=== PATIENT | female | born 1985 ===

== ENCOUNTER 2016-12-28 05:36 | Inpatient (IN) | payer SELFPAY ==
[2016-12-28] MEDS ORDERED: ceFAZolin 2 GM in Sodium Chloride 0.9% 100 ML IVPB ONE (05:43)
[2016-12-28 05:45] VITALS: BMI 37.5
[2016-12-28] MEDS: Lactated Ringer's 1,000 ML IV SCH ×3 (06:15→21:54)
[2016-12-28] MEDS ORDERED: ePHEDrine 50 mg/ml Inj ONE ×2 (06:30→10:36)
[2016-12-28] MEDS ORDERED: Morphine 1 mg/ml preservative-free Inj(Duramorph) ONE (06:30)
[2016-12-28] MEDS ORDERED: Sodium Chloride 0.9% 10 ML IV ONE (06:31)
[2016-12-28 06:37] VITALS: BP 101/62; PULSE 89; RESP 16; TEMP 98.8; O2SAT 100
[2016-12-28 06:59] LABS: BASO % 0.5 % (0.0-2.0); EOS # 0.1 K/uL (0.0-0.7); EOS % 0.8 % (0.0-4.0); HEMATOCRIT 38.2 % (34.0-47.0); MEAN CELL VOLUME 88.5 fl (81.0-99.0); MEAN CORPUSCULAR HEMOGLOBIN 29.3 pg (27.0-31.0); MEAN CORPUSCULAR HGB CONC 33.1 g/dL (33.0-37.0); MONO # 0.6 K/uL (0.0-0.8); MONO % 5.7 % (0.0-10.0); NEUT # 7.9 K/uL (1.8-7.0); RED CELL DISTRIBUTION WIDTH 13.6 % (11.5-14.5); WHITE BLOOD COUNT 10.6 K/uL (4.8-10.8)
[2016-12-28] MEDS ORDERED: Oxytocin 30 units/LR 500ML 500 ML IV ONE (07:23)
[2016-12-28] MEDS ORDERED: Oxytocin 30 units/LR 500ML 500 ML IV SCH (10:55)
[2016-12-28] MEDS ORDERED: Oxycodone/Acetaminophen 5/325 mg Tab PO PRN (11:57)
[2016-12-28] MEDS: DiphenhydrAMINE 50 mg/ml Inj IVP PRN (12:16)
--- NOTE | 2016-12-28 22:04 | OP ---
PROCEDURE DATE: 12/28/2016 PREOPERATIVE DIAGNOSES: Intrauterine at 39 weeks, history of previous section x 2 . POSTOPERATIVE DIAGNOSES: Intrauterine at 39 weeks, history of previous section x 2. OPERATION PERFORMED: Repeat low-flap transverse section with bilateral tubal ligation. SURGEON: Ginger Nunn MD. HIGH DENSITY FINISHING OPERATOR: Dr. Chris Yarbrough. ANESTHESIA: Spinal administered by Romero Denise MD ESTIMATED BLOOD LOSS: Was 800 mL. Becerra catheter put out approximately 300 mL of clear urine. The patient received approximately 1500 mL of D5LR intraoperatively. OPERATIVE FINDINGS: A male in the vertex presentation, Apgars 9 and 9, weighing 3,210 grams. Normal uterus, tubes, and ovaries were identified. The front end assistant was Dr. Chris Yarbrough. He was instrumental in the care of the patient. He helped creat e exposure, obtain hemostasis, and was helpful in delivery of the infant and closure of the patient. The procedure would not have been possible without his assistance. PROCEDURE: After informed consent was obtained, the patient was taken to the operating room where kalyan pacheco was given spinal anesthesia. She was then prepped and draped in the usual sterile fashion with a l eftward tilt. A Pfannenstiel skin incision was then made with the scalpel and carried down to the un derlying layer of fascia. The fascia was nicked in the midline and the fascial incision was then ext ended laterally with the curved Flowers scissors. The superior aspect of the fascial incision was then grasped with Kiel clamps, elevated up, and the rectus muscles were dissected off using both sharp a nd blunt dissection. Attention was then turned to the inferior aspect of the fascial incision which was grasped with Kiel clamps, elevated up and the fascia was dissected off using both sharp and kaleigh nt dissection. The rectus muscles were then in the midline. The peritoneum was identified and entered sharply with the Metzenbaum scissors. The peritoneal incision was then extended superio rly and inferiorly with good visualization of the bladder. The bladder blade was inserted. The vesi couterine peritoneum was identified and entered sharply with the Metzenbaum scissors. The incision w as then extended laterally and the bladder flap was created digitally. The bladder blade was then re adjusted. A uterine incision was made with a scalpel then extended laterally with the bandage scisso rs. The infant's head was then delivered atraumatically. The nose and mouth were suctioned with DeL ee suction trap. The cord was clamped and cut. The infant was handed off to waiting pediatricians. The placenta was then removed manually. The uterus was exteriorized and cleared of all clots and de bris. The uterine incision was repaired with 0 Vicryl in a running locked fashion. The second layer of the same suture was used to obtain excellent hemostasis. Attention was then turned to the right fallopian tube. It was grasped with Rajiv, a knuckle was created. The tube was tied off with 2-0 chromic. A second suture was used to ensure adequate ligation. The knuckle of tube was then resecte d and sent to pathology for evaluation. A similar procedure was then performed on the left. The abd omen was then copiously irrigated. The irrigant was removed with a suction device. The uterus was r eturned to the abdomen. Both tubes were inspected. Hemostasis was noted. The gutters were cleared of all clots and debris. The peritoneum was closed with 2-0 Vicryl in a running fashion. The muscle was reapproximated with 0 Vicryl in an interrupted fashion. The skin was closed with 3-0 on a Iain needle. The fascia was closed with 0 Vicryl in a running fashion. The skin was closed with 3-0 on a Iain needle. All sponge, lap, needle, and instrument counts were correct x 2. The patient was ta kristina to recovery room in awake and stable condition. Ginger Nunn MD cc: [phone] TT: 12/28/2016 22:03:58 vt
[2016-12-29] MEDS: Lactated Ringer's 1,000 ML IV SCH ×2 (01:52→12:45)
[2016-12-29] MEDS: DiphenhydrAMINE 50 mg/ml Inj IVP PRN (01:58)
[2016-12-29 07:59] LABS: BASO % 0.4 % (0.0-2.0); EOS % 0.5 % (0.0-4.0); HEMATOCRIT 35.4 % (34.0-47.0); LYMPH # 1.6 K/uL (1.0-4.3); LYMPH % 14.9 % (20.0-40.0); MEAN CELL VOLUME 88.7 fl (81.0-99.0); MEAN CORPUSCULAR HEMOGLOBIN 29.9 pg (27.0-31.0); MEAN CORPUSCULAR HGB CONC 33.7 g/dL (33.0-37.0); MONO # 0.6 K/uL (0.0-0.8); MONO % 6.2 % (0.0-10.0); NEUT # 8.2 K/uL (1.8-7.0); RED CELL DISTRIBUTION WIDTH 14.3 % (11.5-14.5); WHITE BLOOD COUNT 10.4 K/uL (4.8-10.8)
[2016-12-29] MEDS: Multivitamin With Minerals Tab PO SCH (08:36)
[2016-12-29] MEDS: Oxycodone/Acetaminophen 5/325 mg Tab PO PRN ×3 (08:36→22:16)
[2016-12-30] MEDS: Simethicone 80 mg Chewtab PO SCH ×5 (01:00→17:10)
[2016-12-30] MEDS: Oxycodone/Acetaminophen 5/325 mg Tab PO PRN ×2 (06:47→22:35)
[2016-12-30] MEDS: Multivitamin With Minerals Tab PO SCH (09:12)
--- NOTE | 2016-12-30 16:48 | OBPPN ---
Datetime: 12/30/2016 05:50 PP Pain Prov: Within normal limits PP Nausea Prov: Denies PP Flatus Prov: Yes PP BM Prov: No PP Breasts Prov: Normal PP Heart Prov: Normal PP Lungs Prov: Normal PP Abdomen/Uterus Prov: Normal PP Lochia Prov: Normal PP Vulva/Perineum Prov: Normal PP CVA Tenderness Prov: Normal PP Extremities Prov: Normal PP C/S Incision Prov: Normal PP Progress Prov: Normal PP Comments Phys Exam Prov: No acute distress. Comfortable in bed. Lungs CTA b/l. RRR S1S2. Abd: soft, uterus below umb level, firm. +BS Wound clean and dry, edges attached. no calf tenderness Alert, oriented PP Impression Prov: Normal progression PP Plan Prov: Continue present management PP Progress Note Prov: POD2 Patient seen at bedside on POD2 s/p C-Sect(repeat). Denies nausea, vomiting or headache. Tolerasti ng PO reg diet. Lochia less than menses, pain is controlled with motrin. +Flatus and - BM. Voiding wi th no difficulty. Denies calf pain. Wound dressing removed yesterday afternoon. O:See above A: 31 y/o S/P C-Sect on POD2 stable P: Cont Motrin, Percocet PRN for pain Cont reg diet Encourage ambulation Anticipated DC 12/31/16 Tom Hartman PGY1 [facility] ADDENDUM: Pt seen _ exmined by me. Agree with assessment and plan above. IP PP Procedures: None Vital Signs Provider PP: Reviewed; Within Normal Limits
[2016-12-31] MEDS: Multivitamin With Minerals Tab PO SCH (08:36)
[2016-12-31] MEDS: Simethicone 80 mg Chewtab PO SCH ×2 (08:37→16:26)
--- NOTE | 2016-12-31 09:33 | OBDCSUM ---
Datetime: 12/31/2016 05:55 Discharged to, Provider: Home Follow up at, Provider: PMD [facility] Disch Instr Activity: Normal activity Disch Instr Diet: Regular Discharge Instructions, Provider: Routine instructions given Discharge Diagnosis, Provider: Term Delivered Discharge Time: 12/31/2016 11:00 Follow up in weeks, Provider: 7 days Disch Referrals: None Contraception discussed, Prov: Yes Disch Activity Restrictions: No exercising; No lifting; No driving; No sexual activity; Nothing in v agina - [place], tampons, douche Discharge Comment, Provider: POD3 Patient seen at bedside on POD3 s/p C-Sect(repeat). Denies nausea, vomiting or headache. Tolerasti ng PO reg diet. Lochia less than menses, pain is controlled with motrin and percocet. +Flatus and + B M. Voiding with no difficulty. Denies calf pain. C/O numbness in pubic area. O: See above A: 31 y/o S/P C-Sect on POD3 stable P: Discharge home after evaluated by attendant Cont Motrin, Percocet PRN for pain F/U with PMD at [facility] in 7 days for wound check(Patient has appt) Instructed to return to ED if heavy bleeding, severe pain, fever or any other concerns Tom Hartman PGY1 Contraception after Delivery: Tubal Ligation
--- NOTE | 2016-12-31 09:33 | OBPPN ---
Datetime: 12/31/2016 05:50 PP Pain Prov: Within normal limits PP Nausea Prov: Denies PP Flatus Prov: Yes PP BM Prov: Yes PP Breasts Prov: Normal PP Heart Prov: Normal PP Lungs Prov: Normal PP Abdomen/Uterus Prov: Normal PP Lochia Prov: Normal PP Vulva/Perineum Prov: Normal PP CVA Tenderness Prov: Normal PP Extremities Prov: Normal PP Progress Prov: Normal PP Comments Phys Exam Prov: No acute distress. Comfortable in bed. Lungs CTA b/l. RRR S1S2. Abd: soft, uterus below umb level, firm. +BS Wound clean and dry, edges attached. no calf tenderness Alert, oriented Ecchymosis and swelling present in pubic area. No fluctuance or induration PP Impression Prov: Normal progression PP Plan Prov: Continue present management; Discharge PP Progress Note Prov: POD3 Patient seen at bedside on POD3 s/p C-Sect(repeat) with BTL. Denies nausea, vomiting or headache. Tolerasting PO reg diet. Lochia less than menses, pain is controlled with motrin and percocet. +Flatu s and + BM. Voiding with no difficulty. Denies calf pain. C/O numbness in pubic area. O: See above A: 31 y/o S/P C-Sect with BTL on POD3 stable P: Cont Motrin, Percocet PRN for pain Encourage ambulation Anticipated DC today Tom Hartman PGY1 Attending Addendum: Patient was evaluated independently by myself and I agree with the above. Marychuy ent is stable for discharge, discharge instructions have been reviewed IP PP Procedures: Tubal Ligation Vital Signs Provider PP: Reviewed; Within Normal Limits
== END 2016-12-31 15:48 | disposition home or self-care (01) | DRG 371 ==
LOC: H.L&D 05:36 → H.OB/GYN 15:22
PROVIDERS: ADMIT Obstetrics & Gynecology; ATTEND Obstetrics & Gynecology
PROC: 10D00Z1 Extraction of Products of Conception, Low, Open Approach (ICD-10-PCS; principal; 2016-12-28)
PROC: 0UB70ZZ Excision of Bilateral Fallopian Tubes, Open Approach (ICD-10-PCS; 2016-12-28)
PROC: 4A1HXCZ Monitoring of Products of Conception, Cardiac Rate, External Approach (ICD-10-PCS; 2016-12-28)
DX: O34.219 Maternal care for unspecified type scar from previous cesarean delivery (principal); Z30.2 Encounter for sterilization; Z3A.39 39 weeks gestation of pregnancy; Z37.0 Single live birth

== ENCOUNTER 2017-04-23 07:28 | Emergency (ER) | payer SELFPAY ==
[2017-04-23 07:34] VITALS: BMI 36.3
[2017-04-23 07:36] VITALS: O2SAT 100
[2017-04-23] MEDS ORDERED: Sucralfate 1 gm/10 ml Oral Susp UD PO STA (07:57)
[2017-04-23] MEDS ORDERED: Sodium Chloride 0.9% 1,000 ML IV SCH (08:00)
[2017-04-23] MEDS ORDERED: Acetaminophen 160 mg/5 ml UD ONE (08:02)
--- NOTE | 2017-04-23 08:03 | ED PDOC ---
HPI: Chest Pain Time Seen by Provider: 04/23/17 07:44 Chief Complaint (Nursing): Chest Pain Chief Complaint (Provider): Chest pain History Per: Patient History/Exam Limitations: no limitations Onset/Duration Of Symptoms: Hrs Current Symptoms Are (Timing): Still Present Context: Other (otc diet medications) Quality: Burning, Pressure, "Pain" Associated Symptoms: Nausea Additional Complaint(s): The patient is a 31yo female, no pertinent past medical history, presents to the ED for evaluation of chest pain present since last night. Patient reports she has been taking two types (Alipotec, Moringa + Neem) of over the counter diet pills and when she started the second medication (Moringa + Neem), she experienced chest pressure, burning sensation from her substernal region to her epigastric region. She also reports associated headache and states she did not sleep all last night. Patient reports drining milk at 2 am with no relief; she reports some shortness of breath and her chest pain is pressure like all across her chest. She also reports some nausea but denies any vomiting, denies any radiation of pain. Patient denies taking any other medications for her symptoms. She offers no additional medical complaints. Past Medical History Reviewed: Historical Data, Nursing Documentation, Vital Signs Vital Signs: Last Vital Signs Temp 98.1 F 04/23/17 07:34 Pulse 86 04/23/17 09:31 Resp 14 04/23/17 09:31 BP 136/68 04/23/17 09:31 Pulse Ox 100 04/23/17 09:31 - Medical History PMH: No Chronic Diseases Denies: CAD - Surgical History Surgical History: (for twins) - Family History Family History: States: Unknown Family Hx - Social History Current smoker - smoking cessation education provided: No Alcohol: None Drugs: Denies - Home Medications Home Medications: Ambulatory Orders Medication Instructions Recorded Acetaminophen [Tylenol 325mg tab] 650 mg PO Q6H PRN #50 tab 04/23/17 Famotidine [Pepcid] 20 mg PO BID #28 tab 04/23/17 Ondansetron [Zofran] 4 mg PO Q8H #9 tab 04/23/17 - Allergies Allergies/Adverse Reactions: Allergies Allergy/AdvReac Type Severity Reaction Status Date / Time No Known Allergies Allergy Verified 12/28/16 06:34 Review of Systems ROS Statement: Except As Marked, All Systems Reviewed And Found Negative Constitutional: Negative for: Fever, Chills Cardiovascular: Positive for: Chest Pain Respiratory: Positive for: Shortness of Breath Gastrointestinal: Positive for: Nausea. Negative for: Vomiting, Abdominal Pain Musculoskeletal: Negative for: Other (extremity swelling) Physical Exam - Reviewed Nursing Documentation Reviewed: Yes Vital Signs Reviewed: Yes - Physical Exam Appears: Positive for: Non-toxic, No Acute Distress, Uncomfortable (anxious appearing) Head Exam: Positive for: ATRAUMATIC, NORMAL INSPECTION, NORMOCEPHALIC Skin: Positive for: Normal Color, Warm, DRY Eye Exam: Positive for: EOMI, Normal appearance, PERRL Neck: Positive for: Normal, Supple Cardiovascular/Chest: Positive for: Tachycardia, Other (S1 and S2 with 2/6 systolic murmur present on left sternal border.) Respiratory: Positive for: Normal Breath Sounds. Negative for: Respiratory Distress Gastrointestinal/Abdominal: Positive for: Soft, Tenderness (mild epigastric tenderness) Back: Positive for: Normal Inspection Extremity: Positive for: Normal ROM. Negative for: Pedal Edema, Deformity Neurologic/Psych: Positive for: Alert, Oriented. Negative for: Motor/Sensory Deficits - Laboratory Results Result Diagrams: 04/23/17 08:21 04/23/17 08:21 - ECG ECG: Positive for: Interpreted By Me, Viewed By Me ECG Rhythm: Positive for: Sinus Tachycardia. Negative for: ST/T Changes Interpretation Of ECG: Normal axis Rate: 101 O2 Sat by Pulse Oximetry: 100 (RA) Pulse Ox Interpretation: Normal - Progress Re-evaluation Time: 10:15 Condition: Re-examined, Improved Medical Decision Making Medical Decision Making: Time: 0750 Impression: Chest pain and epigastric pain likely related to supplements Plan: -- Zofran 4 mg IV -- Pepcid 20 mg IV -- Carafate 1g PO -- Tylenol 650 mg PO -- IV Fluids -- EKG -- Chest x-ray -- Labs Reassess Time: 900 Chest x-ray shows no acute disease. Scribe Attestation: Documented by Socorro Pemberton acting as a scribe for Jocelyn Childress MD. Provider Attestation: All medical record entries made by the Scribe were at my direction and personally dictated by me. I have reviewed the chart and agree that the record accurately reflects my personal performance of the history, physical exam, medical decision making, and the department course for this patient. I have also personally directed, reviewed, and agree with the discharge instructions and disposition. Disposition - Clinical Impression Clinical Impression: Gastritis - Patient ED Disposition Is Patient to be Admitted: No Doctor Will See Patient In The: Office Counseled Patient/Family Regarding: Diagnosis, Need For Followup, Rx Given - Disposition Referrals: [facility] [Outside] [facility] [Outside] [facility] [employer] [facility] [Outside] Disposition: Routine/Home Disposition Time: 10:15 Condition: STABLE Prescriptions: Acetaminophen [Tylenol 325mg tab] 650 mg PO Q6H PRN #50 tab PRN Reason: Pain, Moderate (4-7) Famotidine [Pepcid] 20 mg PO BID #28 tab Ondansetron [Zofran] 4 mg PO Q8H #9 tab Instructions: Gastritis (ED) Print Language: MALAY - POA Present On Arrival: None
[2017-04-23 08:30] LABS: BASO % 0.4 % (0.0-2.0); EOS # 0.1 K/uL (0.0-0.7); EOS % 1.2 % (0.0-4.0); HEMOGLOBIN 13.6 g/dL (12.0-16.0); LYMPH # 1.9 K/uL (1.0-4.3); MEAN CELL VOLUME 85.4 fl (81.0-99.0); MEAN CORPUSCULAR HEMOGLOBIN 28.6 pg (27.0-31.0); MEAN CORPUSCULAR HGB CONC 33.5 g/dL (33.0-37.0); MEAN PLATELET VOLUME 7.5 fl (7.2-11.7); MONO # 0.8 K/uL (0.0-0.8); MONO % 6.7 % (0.0-10.0); NEUT # 9.2 K/uL (1.8-7.0); NEUT % 75.7 % (50.0-75.0); RBC 4.76 Mil/uL (3.80-5.20); RED CELL DISTRIBUTION WIDTH 13.2 % (11.5-14.5); WHITE BLOOD COUNT 12.1 K/uL (4.8-10.8)
[2017-04-23 08:38] LABS: ALB/GLOB RATIO 1.3 (1.0-2.1); ALBUMIN 4.7 g/dL (3.5-5.0); ALT/SGPT 46 U/L (9-52); AST/SGOT 32 U/L (14-36); BLOOD UREA NITROGEN 14 mg/dl (7-17); CALCIUM 10.2 mg/dL (8.4-10.2); GFR AFRICAN-AMERICAN > 60; GFR NON-AFRICAN AMERICAN > 60
[2017-04-23 09:12] LABS: SQUAMOUS EPITHIAL 1 /hpf (0-5); URINE BILIRUBIN NEGATIVE (NEGATIVE); URINE BLOOD MODERATE (NEGATIVE); URINE CLARITY CLEAR (Clear); URINE COLOR STRAW (YELLOW); URINE GLUCOSE (UA) NEG (Normal); URINE LEUKOCYTE ESTERASE NEG Leu/uL (Negative); URINE NITRATE NEGATIVE (NEGATIVE); URINE PROTEIN NEGATIVE (NEGATIVE); URINE UROBILINOGEN 0.2-1.0 mg/dL (0.2-1.0)
--- NOTE | 2017-04-23 09:15 | RAD ---
PROCEDURE: CHEST RADIOGRAPH, 1 VIEW HISTORY: chest COMPARISON: None available. FINDINGS: LUNGS: Clear. PLEURA: No pneumothorax or pleural fluid seen. CARDIOVASCULAR: Normal. OSSEOUS STRUCTURES: No significant abnormalities. VISUALIZED UPPER ABDOMEN: Normal. OTHER FINDINGS: None. IMPRESSION: No active disease.
[2017-04-23 09:31] VITALS: RESP 14
--- NOTE | 2017-04-23 10:24 | CT ---
PROCEDURE: CT Abdomen and Pelvis without intravenous contrast HISTORY: hematuria and back pain COMPARISON: None. TECHNIQUE: Technique. Contrast Dose: Radiation dose: Total exam DLP = 885 mGy-cm. This CT exam was performed using one or more of the following dose reduction techniques: Automated exposure control, adjustment of the mA and/or kV according to patient size, and/or use of iterative reconstruction technique. FINDINGS: LOWER THORAX: Unremarkable. LIVER: Unremarkable. No gross lesion or ductal dilatation. GALLBLADDER AND BILE DUCTS: Unremarkable. PANCREAS: Unremarkable. No gross lesion or ductal dilatation. SPLEEN: Unremarkable. ADRENALS: Unremarkable. No mass. KIDNEYS AND URETERS: Unremarkable. No hydronephrosis. No solid mass. VASCULATURE: Unremarkable. No aortic aneurysm. BOWEL: Unremarkable. No obstruction. No gross mural thickening. APPENDIX: Unremarkable. Normal appendix. PERITONEUM: Unremarkable. No free fluid. No free air. LYMPH NODES: Unremarkable. No enlarged lymph nodes. BLADDER: Unremarkable. REPRODUCTIVE: Unremarkable. BONES: No acute fracture. OTHER FINDINGS: Minimal infiltration in the lower anterior abdominal wall subcutaneous fat possibly postsurgical.. IMPRESSION: No evidence of urinary tract calculus or hydronephrosis.
[2017-04-23 11:23] VITALS: BP 126/75; PULSE 82; TEMP 97.9
--- NOTE | 2017-04-23 11:23 | CARD ---
APPROVED REPORT EKG Measurement Heart [id number] <Conclusion> Sinus tachycardia with 1st degree AV block Otherwise normal ECG
== END 2017-04-23 11:23 | disposition home or self-care (01) ==
LOC: H.ER 07:28
DX: K29.70 Gastritis, unspecified, without bleeding (principal)

== ENCOUNTER 2017-10-15 14:12 | Emergency (ER) | payer OTHER, SELFPAY ==
[2017-10-15 14:12] VITALS: BMI 36.3
[2017-10-15 14:23] VITALS: BP 116/41; PULSE 65; RESP 16; TEMP 97.8; O2SAT 100
--- NOTE | 2017-10-15 14:50 | ED PDOC ---
HPI: General Adult Time Seen by Provider: 10/15/17 14:29 Chief Complaint (Nursing): ENT Problem Chief Complaint (Provider): Left ear pain History Per: Patient History/Exam Limitations: no limitations Onset/Duration Of Symptoms: Days (x4) Current Symptoms Are (Timing): Still Present Additional Complaint(s): Venus Banks is a 32 year old female who presents to the emergency department complaining of left ear pain for 4 days. Patient reports having similar symptoms ongoing for several years. Denies any decreased hearing, trauma to the ear, headache, or fever. PMD: [facility] Provider Past Medical History Reviewed: Historical Data, Nursing Documentation, Vital Signs Vital Signs: Last Vital Signs Temp 97.8 F 10/15/17 14:21 Pulse 65 10/15/17 14:21 Resp 16 10/15/17 14:21 BP 116/41 L 10/15/17 14:21 Pulse Ox 100 10/15/17 17:42 - Medical History PMH: No Chronic Diseases Denies: CAD - Surgical History Surgical History: (for twins) - Family History Family History: States: Unknown Family Hx - Social History Current smoker - smoking cessation education provided: No Alcohol: None Drugs: Denies - Home Medications Home Medications: Ambulatory Orders Medication Instructions Recorded Acetaminophen [Tylenol 325mg tab] 650 mg PO Q6H PRN #50 tab 04/23/17 Famotidine [Pepcid] 20 mg PO BID #28 tab 04/23/17 Ondansetron [Zofran] 4 mg PO Q8H #9 tab 04/23/17 Ofloxacin Otic 0.3% [Floxin 0.3% 10 drop DAILY #1 bottle 10/15/17 Otic Soln] - Allergies Allergies/Adverse Reactions: Allergies Allergy/AdvReac Type Severity Reaction Status Date / Time No Known Allergies Allergy Verified 12/28/16 06:34 Review of Systems ROS Statement: Except As Marked, All Systems Reviewed And Found Negative Constitutional: Negative for: Fever ENT: Positive for: Ear Pain (left). Negative for: Other (trauma or decreased hearing) Neurological: Negative for: Headache Physical Exam - Reviewed Nursing Documentation Reviewed: Yes Vital Signs Reviewed: Yes - Physical Exam Appears: Positive for: Non-toxic, No Acute Distress Head Exam: Positive for: ATRAUMATIC, NORMAL INSPECTION, NORMOCEPHALIC Skin: Positive for: Normal Color, Warm, Dry Eye Exam: Positive for: EOMI, Normal appearance, PERRL ENT: Positive for: TM Is/Are (non-erythematous, non-bulging bilaterally), Other (Left ear canal appears mildly edematous with exudates. Pain with pulling on left traigus. No mastoid tenderness bilaterally.) Neck: Positive for: Normal, Painless ROM Neurologic/Psych: Positive for: Alert, Oriented - ECG O2 Sat by Pulse Oximetry: 100 (RA) Pulse Ox Interpretation: Normal Medical Decision Making Medical Decision Making: Time: 14:47 Clinical Impression: Otitis Externa Upon provider evaluation patient is medically stable, and requires no further treatment in the ED at this time. Patient will be discharged home with Rx for Floxin 0.3% ear drops. Counseling was provided and all questions were answered regarding diagnosis and need for follow up with ENT. There is agreement to discharge plan. Return if symptoms persist or worsen. Scribe Attestation: Documented by Jessica Burgos, acting as a scribe for Ellis Lemon PA-C Provider Scribe Attestation: All medical record entries made by the Scribe were at my direction and personally dictated by me. I have reviewed the chart and agree that the record accurately reflects my personal performance of the history, physical exam, medical decision making, and the department course for this patient. I have also personally directed, reviewed, and agree with the discharge instructions and disposition. Disposition - Clinical Impression Clinical Impression: Otitis externa - Patient ED Disposition Is Patient to be Admitted: No Counseled Patient/Family Regarding: Diagnosis, Need For Followup, Rx Given - Disposition Referrals: Carlos Grayson MD [Staff Provider] - [facility] [Outside] Disposition: Routine/Home Disposition Time: 14:47 Condition: STABLE Additional Instructions: Follow up with Dr. Grayson, ENT, for further evaluation. Prescriptions: Ofloxacin Otic 0.3% [Floxin 0.3% Otic Soln] 10 drop DAILY #1 bottle Instructions: Otitis Externa (ED) Forms: [facility] (Urdu)
== END 2017-10-15 15:04 | disposition home or self-care (01) ==
LOC: H.ER 14:12
DX: H60.92 Unspecified otitis externa, left ear (principal)

== ENCOUNTER 2018-02-20 21:14 | Emergency (ER) | payer SELFPAY ==
[2018-02-20 21:14] VITALS: BMI 36.3
[2018-02-20 21:28] VITALS: RESP 16
--- NOTE | 2018-02-20 22:37 | ED PDOC ---
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 Patient states when present she feels like the room is spinning, and feels is as if she is going to fall. In addition to dizziness, patient reports intermittent left-sided chest pain radiating to left arm as of 3 days ago. Denies fever, headache, extremity numbness/weakness, vision changes, shortness of breath, palpitations, abdominal pain, leg pain/swelling. Patient thinks she gets dizzy because her blood pressure gets too low, 104/68; states she was told by a doctor that 110/70 is normal. Past Medical History Reviewed: Historical Data, Nursing Documentation, Vital Signs Vital Signs: Last Vital Signs Temp 98.3 F 02/20/18 21:24 Pulse 84 02/20/18 21:24 Resp 16 02/20/18 21:24 BP 113/72 02/20/18 21:24 Pulse Ox 100 02/20/18 22:38 - Medical History PMH: No Chronic Diseases Denies: CAD - Surgical History Surgical History: (for twins) - Family History Family History: States: Unknown Family Hx - Home Medications Home Medications: Ambulatory Orders Medication Instructions Recorded Acetaminophen [Tylenol 325mg tab] 650 mg PO Q6H PRN #50 tab 04/23/17 Famotidine [Pepcid] 20 mg PO BID #28 tab 04/23/17 Ondansetron [Zofran] 4 mg PO Q8H #9 tab 04/23/17 Ofloxacin Otic 0.3% [Floxin 0.3% 10 drop DAILY #1 bottle 10/15/17 Otic Soln] Meclizine [Meclizine*] 25 mg PO TID PRN #21 tab 02/20/18 - Allergies Allergies/Adverse Reactions: Allergies Allergy/AdvReac Type Severity Reaction Status Date / Time No Known Allergies Allergy Verified 02/20/18 21:24 Review of Systems ROS Statement: Except As Marked, All Systems Reviewed And Found Negative Cardiovascular: Positive for: Chest Pain Neurological: Positive for: Dizziness Physical Exam - Reviewed Nursing Documentation Reviewed: Yes Vital Signs Reviewed: Yes - Physical Exam Appears: Positive for: Well, Non-toxic, No Acute Distress Head Exam: Positive for: ATRAUMATIC, NORMAL INSPECTION, NORMOCEPHALIC Skin: Positive for: Normal Color Eye Exam: Positive for: Normal appearance, EOMI, PERRL. Negative for: Nystagmus ENT: Positive for: Normal ENT Inspection Cardiovascular/Chest: Positive for: Regular Rate, Rhythm Respiratory: Positive for: Normal Breath Sounds Gastrointestinal/Abdominal: Positive for: Normal Exam Back: Positive for: Normal Inspection Extremity: Positive for: Normal ROM Neurologic/Psych: Positive for: Alert, dynamics ax technical architect II-XII, Oriented. Negative for: Motor/Sensory Deficits - Laboratory Results Result Diagrams: 02/20/18 23:05 02/20/18 23:05 - ECG ECG: Positive for: Viewed By Me (reviewed by ED attending) ECG Rhythm: Positive for: Sinus Rhythm O2 Sat by Pulse Oximetry: 100 - Radiology X-Ray: Viewed By Me X-Ray Interpretation: No Acute Disease - Progress ED Course And Treament: labs, chest xray, ekg, orthostatics Patient remains symptom-free throughout ED visit. Patient educated on findings, discharged with rx meclizine. Advised follow up PMD 2-3 days. Return precautions given. Disposition - Clinical Impression Clinical Impression: Dizziness, Atypical chest pain - Patient ED Disposition Is Patient to be Admitted: No Counseled Patient/Family Regarding: Studies Performed, Diagnosis, Need For Followup, Rx Given - Disposition Referrals: [facility] [Outside] Disposition: Routine/Home Disposition Time: 23:43 Condition: GOOD Prescriptions: Meclizine [Meclizine*] 25 mg PO TID PRN #21 tab PRN Reason: Dizziness Instructions: Vertigo (a Type of Dizziness), Chest Pain Forms: [employer] (Malian) Print Language: [place] ISLAND[place]
[2018-02-20] MEDS ORDERED: Sodium Chloride 0.9% 1,000 ML IV STA (23:02)
[2018-02-20 23:12] LABS: BASO # 0.1 K/uL (0.0-0.2); BASO % 0.9 % (0.0-2.0); EOS # 0.2 K/uL (0.0-0.7); EOS % 1.5 % (0.0-4.0); HEMOGLOBIN 13.5 g/dL (12.0-16.0); LYMPH # 3.3 K/uL (1.0-4.3); MEAN CELL VOLUME 84.9 fl (81.0-99.0); MEAN CORPUSCULAR HEMOGLOBIN 28.2 pg (27.0-31.0); MEAN CORPUSCULAR HGB CONC 33.2 g/dL (33.0-37.0); MEAN PLATELET VOLUME 7.1 fl (7.2-11.7); MONO # 0.8 K/uL (0.0-0.8); MONO % 7.2 % (0.0-10.0); NEUT # 6.6 K/uL (1.8-7.0); NEUT % 60.4 % (50.0-75.0); RBC 4.79 Mil/uL (3.80-5.20)
[2018-02-20 23:21] LABS: ALB/GLOB RATIO 1.1 (1.0-2.1); ALBUMIN 4.2 g/dL (3.5-5.0); ALT/SGPT 31 U/L (9-52); AST/SGOT 28 U/L (14-36); BLOOD UREA NITROGEN 19 mg/dl (7-17); CALCIUM 9.8 mg/dL (8.4-10.2); GFR AFRICAN-AMERICAN > 60; GFR NON-AFRICAN AMERICAN > 60
[2018-02-20 23:55] VITALS: BP 124/69; PULSE 71; TEMP 98.2; O2SAT 97
--- NOTE | 2018-02-21 08:46 | RAD ---
HISTORY: chest pain COMPARISON: 10/07/2015 TECHNIQUE: Chest PA and lateral FINDINGS: LUNGS: Left perihilar 6-7 mm nodular opacity perceived -similar dating to 2016. Significance-if any unknown. No interval consolidation. PLEURA: No significant pleural effusion identified. No pneumothorax apparent. CARDIOVASCULAR: Normal. OSSEOUS STRUCTURES: No significant abnormalities. VISUALIZED UPPER ABDOMEN: Normal. OTHER FINDINGS: None. IMPRESSION: No interval pathology noted. The left perihilar 6 to 7 mm nodular opacity is similar with the 2016 study ; its clinical significance, if any, is unknown. It may simply represent prominent vessel seen on end. However a left pulmonary nodule is not excluded. If further evaluation is needed consider noncontrast CT chest imaging
== END 2018-02-20 23:55 | disposition home or self-care (01) ==
LOC: H.ER 21:14
DX: R42 Dizziness and giddiness (principal); R07.9 Chest pain, unspecified

== ENCOUNTER 2018-06-19 15:10 | Emergency (ER) | payer SELFPAY ==
[2018-06-19 15:11] VITALS: BMI 36.3
[2018-06-19 15:14] VITALS: BP 115/69; PULSE 72; RESP 16; TEMP 97.8; O2SAT 100
--- NOTE | 2018-06-19 15:52 | ED PDOC ---
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 Today, she slipped on a wet floor and landed on hands and knees. Notes moderate pain and states "tailbone" hurts. Denies any medications before arrival. PMD: Dr Enrique Past Medical History Reviewed: Historical Data, Nursing Documentation, Vital Signs Vital Signs: Last Vital Signs Temp 97.8 F 06/19/18 15:12 Pulse 72 06/19/18 15:12 Resp 16 06/19/18 15:12 BP 115/69 06/19/18 15:12 Pulse Ox 100 06/19/18 15:12 - Medical History PMH: Denies: CAD - Surgical History Surgical History: (for twins) Other surgeries: bilateral tubal ligation - Family History Family History: States: Unknown Family Hx - Home Medications Home Medications: Ambulatory Orders Medication Instructions Recorded Acetaminophen [Tylenol 325mg tab] 650 mg PO Q6H PRN #50 tab 04/23/17 Famotidine [Pepcid] 20 mg PO BID #28 tab 04/23/17 Ondansetron [Zofran] 4 mg PO Q8H #9 tab 04/23/17 Ofloxacin Otic 0.3% [Floxin 0.3% 10 drop DAILY #1 bottle 10/15/17 Otic Soln] Meclizine [Meclizine*] 25 mg PO TID PRN #21 tab 02/20/18 Ibuprofen [Motrin] 600 mg PO Q8 PRN #21 tab 06/19/18 - Allergies Allergies/Adverse Reactions: Allergies Allergy/AdvReac Type Severity Reaction Status Date / Time No Known Allergies Allergy Verified 06/19/18 15:12 Review of Systems ROS Statement: Except As Marked, All Systems Reviewed And Found Negative Musculoskeletal: Positive for: Back Pain (lower), Leg Pain (left knee ), Foot Pain (right ankle ) Physical Exam - Reviewed Nursing Documentation Reviewed: Yes Vital Signs Reviewed: Yes - Physical Exam Appears: Positive for: Well, Non-toxic, No Acute Distress Head Exam: Positive for: ATRAUMATIC, NORMAL INSPECTION, NORMOCEPHALIC Skin: Positive for: Normal Color, Warm, DRY Eye Exam: Positive for: EOMI, Normal appearance, PERRL Neck: Positive for: Normal, Painless ROM, Supple Cardiovascular/Chest: Positive for: Regular Rate, Rhythm. Negative for: Murmur Respiratory: Positive for: Normal Breath Sounds. Negative for: Wheezing, Respiratory Distress Back: Negative for: Other (bony tenderness) Extremity: Positive for: Tenderness (in right ankle without obvious ecchymosis or swelling). Negative for: Other (tenderness in left ankle and wrists) Neurologic/Psych: Positive for: Alert, Oriented (x 3). Negative for: Motor/ Sensory Deficits - ECG O2 Sat by Pulse Oximetry: 100 - Progress ED Course And Treament: Given crutch instructions and knee immobilizer. Medical Decision Making Medical Decision Makin:22 Initial Plan: --left knee x-ray --Right ankle --Sacrum x-ray --Tylenol 975 mg PO 16:37 --XR right ankle FINDINGS: BONES: Bone alignment and mineralization are normal. There is no acute displaced fracture or bone destruction JOINTS: Normal. No osteoarthritis. Ankle mortise maintained. Talar dome intact SOFT TISSUES: Normal. OTHER FINDINGS: None. IMPRESSION: No acute fracture or dislocation. 17:33 --XR left knee FINDINGS: BONES: No acute fracture or destructive bony lesion identified. JOINTS: Normal. No osteoarthritis. JOINT EFFUSION: None. OTHER FINDINGS: None. IMPRESSION: Normal radiographs of the left knee. 17:34 --XR sacrum & coccyx FINDINGS: BONES: Sacrum and coccyx unremarkable. No fracture or focal lesion. SACROILIAC JOINTS: Unremarkable. OTHER FINDINGS: None. IMPRESSION: Unremarkable radiographs of the sacrum and coccyx. Scribe Attestation: Documented by Karin Lawrence, acting as a scribe for Usama Youngblood PA-C Provider Scribe Attestation: All medical record entries made by the Scribe were at my direction and personally dictated by me. I have reviewed the chart and agree that the record accurately reflects my personal performance of the history, physical exam, medical decision making, and the department course for this patient. I have also personally directed, reviewed, and agree with the discharge instructions and disposition. Disposition - Clinical Impression Clinical Impression: Knee injury, Back contusion - Patient ED Disposition Is Patient to be Admitted: No - Disposition Referrals: [facility] [Outside] Disposition: Routine/Home Disposition Time: 17:44 Condition: FAIR Prescriptions: Ibuprofen [Motrin] 600 mg PO Q8 PRN #21 tab PRN Reason: Pain, Moderate (4-7) Instructions: Contusion (DC), Knee Sprain (DC) Forms: [facility] ED School/Work Excuse Print Language: CROATIAN
--- NOTE | 2018-06-19 16:39 | RAD ---
Date of service: 06/19/2018 PROCEDURE: Right Ankle Radiographs. HISTORY: ankle injury COMPARISON: None FINDINGS: BONES: Bone alignment and mineralization are normal. There is no acute displaced fracture or bone destruction. JOINTS: Normal. No osteoarthritis. Ankle mortise maintained. Talar dome intact SOFT TISSUES: Normal. OTHER FINDINGS: None. IMPRESSION: No acute fracture or dislocation.
--- NOTE | 2018-06-19 17:35 | RAD ---
Date of service: 06/19/2018 PROCEDURE: Left Knee Radiographs. HISTORY: Pain. COMPARISON: None. FINDINGS: BONES: No acute fracture or destructive bony lesion identified. JOINTS: Normal. No osteoarthritis. JOINT EFFUSION: None. OTHER FINDINGS: None. IMPRESSION: Normal radiographs of the left knee.
--- NOTE | 2018-06-19 17:35 | RAD ---
Date of service: 06/19/2018 PROCEDURE: Radiographs of the Sacrum and Coccyx HISTORY: tailbone injury COMPARISON: None available. TECHNIQUE: Frontal and lateral views of the sacrum and coccyx FINDINGS: BONES: Sacrum and coccyx unremarkable. No fracture or focal lesion. SACROILIAC JOINTS: Unremarkable. OTHER FINDINGS: None. IMPRESSION: Unremarkable radiographs of the sacrum and coccyx.
== END 2018-06-19 18:07 | disposition home or self-care (01) ==
LOC: H.ER 15:10
DX: S99.911A Unspecified injury of right ankle, initial encounter (principal); S30.0XXA Contusion of lower back and pelvis, initial encounter; S89.92XA Unspecified injury of left lower leg, initial encounter; W19.XXXA Unspecified fall, initial encounter; Y92.89 Other specified places as the place of occurrence of the external cause

== ENCOUNTER 2018-06-27 08:26 | Emergency (ER) | payer SELFPAY ==
[2018-06-27 08:29] VITALS: RESP 16; BMI 30.9
--- NOTE | 2018-06-27 09:45 | ED PDOC ---
HPI: CCC, URI, Sore Throat Time Seen by Provider: 06/27/18 09:02 Chief Complaint (Nursing): ENT Problem History Per: Patient (patient states right ear pain since Monday, about 4 days ago. pain is worsening. had cold symptoms.) Past Medical History Reviewed: Historical Data, Nursing Documentation, Vital Signs Vital Signs: Last Vital Signs Temp 98.4 F 06/27/18 08:29 Pulse 84 06/27/18 08:29 Resp 16 06/27/18 08:29 BP 112/72 06/27/18 08:29 Pulse Ox 97 06/27/18 08:29 - Medical History PMH: Denies: CAD - Surgical History Surgical History: No Surg Hx, (for twins) - Family History Family History: States: Unknown Family Hx - Living Arrangements Living Arrangements: With Family - Social History Alcohol: None Drugs: Denies - Home Medications Home Medications: Ambulatory Orders Medication Instructions Recorded Acetaminophen [Tylenol 325mg tab] 650 mg PO Q6H PRN #50 tab 04/23/17 Famotidine [Pepcid] 20 mg PO BID #28 tab 04/23/17 Ondansetron [Zofran] 4 mg PO Q8H #9 tab 04/23/17 Ofloxacin Otic 0.3% [Floxin 0.3% 10 drop DAILY #1 bottle 10/15/17 Otic Soln] Meclizine [Meclizine*] 25 mg PO TID PRN #21 tab 02/20/18 Ibuprofen [Motrin] 600 mg PO Q8 PRN #21 tab 06/19/18 Amoxicillin 500 mg PO TID #21 tablet 06/27/18 - Allergies Allergies/Adverse Reactions: Allergies Allergy/AdvReac Type Severity Reaction Status Date / Time No Known Allergies Allergy Verified 06/19/18 15:12 Review of Systems ROS Statement: Except As Marked, All Systems Reviewed And Found Negative Constitutional: Negative for: Fever, Chills ENT: Positive for: Ear Pain. Negative for: Ear Discharge Respiratory: Positive for: Cough Gastrointestinal: Negative for: Nausea, Vomiting Physical Exam - Reviewed Nursing Documentation Reviewed: Yes Vital Signs Reviewed: Yes - Physical Exam Appears: Positive for: Well, Non-toxic, No Acute Distress Head Exam: Positive for: ATRAUMATIC, NORMAL INSPECTION, NORMOCEPHALIC Skin: Positive for: Normal Color Eye Exam: Positive for: Normal appearance, EOMI ENT: Positive for: Normal ENT Inspection, TM Is/Are (mild erythematous) Neck: Positive for: Normal Respiratory: Positive for: CNT, Normal Breath Sounds Extremity: Positive for: Normal ROM Neurologic/Psych: Positive for: Alert, Oriented - ECG O2 Sat by Pulse Oximetry: 97 Disposition - Clinical Impression Clinical Impression: Otitis media - Patient ED Disposition Is Patient to be Admitted: No Doctor Will See Patient In The: Office Counseled Patient/Family Regarding: Diagnosis, Need For Followup, Rx Given - Disposition Referrals: Pending Sale To [facility] [Outside] [facility] [Outside] Disposition: Routine/Home Disposition Time: 09:46 Condition: STABLE Prescriptions: Amoxicillin 500 mg PO TID #21 tablet Instructions: Ear Infections (Otitis Media) Print Language: FAROESE - POA Present On Arrival: None
[2018-06-27 10:00] VITALS: BP 118/66; PULSE 86; TEMP 98.3; O2SAT 99
== END 2018-06-27 10:00 | disposition home or self-care (01) ==
LOC: H.ER 08:26
DX: H66.90 Otitis media, unspecified, unspecified ear (principal)

== ENCOUNTER 2018-09-08 12:19 | Emergency (ER) | payer SELFPAY ==
[2018-09-08 12:19] VITALS: BMI 30.9
--- NOTE | 2018-09-08 13:01 | ED PDOC ---
HPI: Abdomen Time Seen by Provider: 09/08/18 12:43 Chief Complaint (Nursing): Abdominal Pain Chief Complaint (Provider): Abdominal Pain History Per: Patient History/Exam Limitations: no limitations Onset/Duration Of Symptoms: Days (yesterday morning) Current Symptoms Are (Timing): Still Present Location Of Pain/Discomfort: LLQ Quality Of Discomfort: Cramping, "Pain" Additional Complaint(s): 33 year old female with no significant past medical history presents to the ED with left lower quadrant and left pelvic pain onset yesterday morning. Patient states pain comes in severe waves. She finished her LMP x3 days ago and did not experience this pain during it. She denies taking any medications for pain since symptoms started. PMD: patient does not have one Abnormal Vaginal Bleeding: No Last Menstral Period: ended x3 days ago. Past Medical History Reviewed: Historical Data, Nursing Documentation, Vital Signs Vital Signs: Last Vital Signs Temp 98.5 F 09/08/18 12:32 Pulse 79 09/08/18 12:32 Resp 16 09/08/18 12:32 BP 105/74 09/08/18 12:32 Pulse Ox 99 09/08/18 12:32 - Medical History PMH: No Chronic Diseases Denies: CAD - Surgical History Surgical History: (x3 total, once for twins) Other surgeries: tubal ligation - Family History Family History: States: Unknown Family Hx - Home Medications Home Medications: Ambulatory Orders Medication Instructions Recorded Acetaminophen [Tylenol 325mg tab] 650 mg PO Q6H PRN #50 tab 04/23/17 Famotidine [Pepcid] 20 mg PO BID #28 tab 04/23/17 Ondansetron [Zofran] 4 mg PO Q8H #9 tab 04/23/17 RX: Ofloxacin Otic 0.3% [Floxin 10 drop DAILY #1 bottle 10/15/17 0.3% Otic Soln] RX: Meclizine [Meclizine*] 25 mg PO TID PRN #21 tab 02/20/18 Ibuprofen [Motrin] 600 mg PO Q8 PRN #21 tab 06/19/18 RX: Amoxicillin 500 mg PO TID #21 tablet 06/27/18 - Allergies Allergies/Adverse Reactions: Allergies Allergy/AdvReac Type Severity Reaction Status Date / Time No Known Allergies Allergy Verified 06/19/18 15:12 Review of Systems ROS Statement: Except As Marked, All Systems Reviewed And Found Negative Gastrointestinal: Positive for: Abdominal Pain Genitourinary Female: Positive for: Pelvic Pain Physical Exam - Reviewed Nursing Documentation Reviewed: Yes Vital Signs Reviewed: Yes - Physical Exam Appears: Positive for: Non-toxic, No Acute Distress Head Exam: Positive for: ATRAUMATIC, NORMOCEPHALIC Skin: Positive for: Normal Color, Warm, Dry Eye Exam: Positive for: EOMI, Normal appearance, PERRL ENT: Positive for: Normal ENT Inspection Neck: Positive for: Normal, Painless ROM Cardiovascular/Chest: Positive for: Regular Rate, Rhythm. Negative for: Murmur Respiratory: Positive for: Normal Breath Sounds. Negative for: Respiratory Distress Gastrointestinal/Abdominal: Positive for: Tenderness (LLQ) Back: Negative for: L CVA Tenderness, R CVA Tenderness Extremity: Positive for: Normal ROM (upper and lower). Negative for: Pedal Edema, Deformity Neurologic/Psych: Positive for: Alert, Oriented (x3) - Laboratory Results Result Diagrams: 09/08/18 13:20 09/08/18 13:20 - ECG O2 Sat by Pulse Oximetry: 99 (RA) Pulse Ox Interpretation: Normal - Progress Re-evaluation Time: 17:00 Condition: Re-examined, Improved Medical Decision Making Medical Decision Making: Time: 1255 Initial Impression: Ovarian cyst; rule out nephrolithiasis, UTI and complications Initial Plan: --BMP --Urine preg --Urine dip --CBC with differentials --Toradol 30 mg IVP --Pelvis/Transvaginal US Time: 1505 Pelvis/Transvaginal US FINDINGS: The uterus measures 9.7 x 4.2 x 5.7 centimeters. The endometrium measures 7 millimeters. There are cystic changes at within the endometrium measuring up to 5 millimeters which could represent an endometrial polyp. The right ovary measures 2.9 x 2.2 x 2.6 centimeters. The left ovary is not identified. IMPRESSION: There are cystic changes at within the endometrium measuring up to 5 millimeters which could represent an endometrial polyp. Scribe Attestation: Documented by Mirella Finney, acting as a scribe for Miguel Angel Clayton MD Provider Scribe Attestation: All medical record entries made by the Scribe were at my direction and personally dictated by me. I have reviewed the chart and agree that the record accurately reflects my personal performance of the history, physical exam, medical decision making, and the department course for this patient. I have also personally directed, reviewed, and agree with the discharge instructions and disposition. Disposition - Clinical Impression Clinical Impression: Abdominal pain, Endometrium, polyp - Patient ED Disposition Is Patient to be Admitted: No Doctor Will See Patient In The: Office Counseled Patient/Family Regarding: Studies Performed, Diagnosis, Need For Followup - Disposition Referrals: [facility] [Outside] Disposition: Routine/Home Disposition Time: 17:00 Condition: GOOD Additional Instructions: PAUL WELDON, thank you for letting us take care of you today. Your provider was Miguel Angel Clayton MD and you were treated for LT ABD PAIN. The emergency medical care you received today was directed at your acute symptoms. If you were prescribed any medication, please fill it and take as directed. It may take several days for your symptoms to resolve. Return to the Emergency Department if your symptoms worsen, do not improve, or if you have any other problems. Please contact your doctor or call one of the physicians/clinics you have been referred to that are listed on the Patient Visit Information form that is included in your discharge packet. Bring any paperwork you were given at [facility] with you along with any medications you are taking to your follow up visit. Our treatment cannot replace ongoing medical care by a primary care provider outside of the emergency department. Thank you for allowing the [facility] team to be part of your care today. If you had an X-Ray or CT scan: A Radiologist will review the ED reading if any change in treatment is needed we will contact you. If you had a blood, urine, or wound culture: It will take several days for the results, if any change in treatment is needed we will contact you. If you had an STI test: It will take 48 hours for the results. Please call after 1 week if you have not heard back. Instructions: Acute Pelvic Pain (DC)
[2018-09-08 13:40] LABS: BASO # 0.1 K/uL (0.0-0.2); EOS # 0.1 K/uL (0.0-0.7); EOS % 1.5 % (0.0-4.0); HEMOGLOBIN 12.7 g/dL (12.0-16.0); MEAN CELL VOLUME 85.3 fl (81.0-99.0); MEAN CORPUSCULAR HEMOGLOBIN 28.7 pg (27.0-31.0); MEAN CORPUSCULAR HGB CONC 33.7 g/dL (33.0-37.0); MEAN PLATELET VOLUME 7.2 fl (7.2-11.7); MONO # 0.4 K/uL (0.0-0.8); MONO % 5.9 % (0.0-10.0); NEUT # 4.8 K/uL (1.8-7.0); NEUT % 64.6 % (50.0-75.0); NRBC % 0.1 % (0.0-0.0); RBC 4.43 Mil/uL (3.80-5.20); WHITE BLOOD COUNT 7.4 K/uL (4.8-10.8)
[2018-09-08 13:42] LABS: BLOOD UREA NITROGEN 17 mg/dl (7-17); CALCIUM 9.7 mg/dL (8.4-10.2); GFR NON-AFRICAN AMERICAN > 60
--- NOTE | 2018-09-08 15:08 | US ---
Date of service: 09/08/2018 PROCEDURE: HISTORY: left pelvic pain COMPARISON: TECHNIQUE: FINDINGS: The uterus measures 9.7 x 4.2 x 5.7 centimeters. The endometrium measures 7 millimeters. There are cystic changes at within the endometrium measuring up to 5 millimeters which could represent an endometrial polyp. The right ovary measures 2.9 x 2.2 x 2.6 centimeters. The left ovary is not identified. IMPRESSION: There are cystic changes at within the endometrium measuring up to 5 millimeters which could represent an endometrial polyp.
[2018-09-08 16:43] VITALS: PULSE 78; RESP 19
[2018-09-08 18:10] VITALS: BP 105/75; TEMP 97.6
[2018-09-08 18:16] VITALS: O2SAT 99
== END 2018-09-08 18:10 | disposition home or self-care (01) ==
LOC: H.ER 12:19
DX: R10.2 Pelvic and perineal pain (principal); N84.0 Polyp of corpus uteri
CPT/HCPCS: 76830; 76856; 80048; 81025; 85025; 96374; 99283; J1885